=== PATIENT | male | born 1975 | race Caucasian/White ===

== ENCOUNTER 2024-10-22 05:22 | Emergency (ER) | payer SELFPAY ==
[2024-10-22 05:58] LABS: BASOPHILS ABSOLUTE AUTO 0.03 K/uL (0.00-0.10); BASOPHILS PERCENT AUTO 0.5 % (0.1-1.3); EOSINOPHILS ABSOLUTE AUTO 0.03 K/uL (0.00-0.40); EOSINOPHILS PERCENT AUTO 0.5 % (0.0-5.4); HEMATOCRIT 39.2 % (38.4-49.7); IMMATURE GRAN PERCENT AUTO 0.3 % (0.0-0.7); LYMPHOCYTES ABSOLUTE AUTO 0.83 K/uL (0.8-3.3); LYMPHOCYTES PERCENT AUTO 14.2 % (11.4-47.7); MEAN CORPUSCULAR HEMOGLOBIN 33.9 pg (31.6-35.5); MEAN CORPUSCULAR HGB CONC 33.2 g/dL (31.6-35.5); MEAN CORPUSCULAR VOLUME 102.3 fL (81.4-99.0); MONOCYTES PERCENT AUTO 15.4 % (3.3-12.6); NEUTROPHILS ABSOLUTE AUTO 4.04 K/uL (1.0-7.6); NEUTROPHILS PERCENT AUTO 69.1 % (40.0-78.1); PLATELET COUNT,PLT 108 K/uL (130-375); RED BLOOD CELL COUNT 3.83 M/uL (4.14-5.76); WHITE BLOOD CELL COUNT,WBC 5.9 K/uL (3.2-11.0)
[2024-10-22] MEDS: Sodium Chloride 0.9% 1,000 ML IV SCH (06:04)
[2024-10-22 06:13] LABS: IMMATURE GRAN ABSOLUTE AUTO 0.02 K/uL (0.00-0.23)
[2024-10-22 06:21] LABS: A/G RATIO 0.9 (1.2-2.2); ALANINE AMINOTRANSFERASE,ALT 26 U/L (12-78); ALBUMIN 2.9 g/dL (3.4-5.0); ALKALINE PHOSPHATASE 113 U/L (46-116); ASPARTATE AMNIOTRANSFERASE,AST 21 U/L (15-37); BLOOD UREA NITROGEN,BUN 5 mg/dL (7-18); C-REACTIVE PROTEIN 8.64 mg/dL (<0.50); CALCIUM 8.4 mg/dL (8.5-10.1); CARBON DIOXIDE,CO2 26 mmol/L (21-32); CHLORIDE,CL 104 mmol/L (100-108); CREATININE 0.9 mg/dL (0.8-1.3); EST CRCL DRUG DOSING (CG) 109.23 mL/min; ESTIMATED GFR 107 mL/min (>60); GLUCOSE RANDOM 116 mg/dL (74-106); POTASSIUM,K 3.8 mmol/L (3.6-5.2); PROTEIN TOTAL,TP 6.3 g/dL (6.4-8.2); SODIUM,NA 138 mmol/L (140-148)
[2024-10-22 06:23] LABS: ANION GAP 11.8 mmol/L (5.0-14.0)
[2024-10-22] MEDS: Sodium Chloride 0.9% 100 ML IV SCH (07:00)
[2024-10-22] MEDS: Iopamidol 612 MG/ML 100 ML Bottle IV SCH (07:00)
[2024-10-22] MEDS: Sodium Chloride 0.9% 10 ML Syringe FLUSH PRN (07:00)
[2024-10-22 07:06] LABS: APPEARANCE,URINE TURBID (CLEAR); BILIRUBIN,URINE NEGATIVE (NEGATIVE); COLOR,URINE YELLOW (YELLOW); GLUCOSE,URINE NEGATIVE (NEGATIVE); KETONES,URINE 15 mg/dL (NEGATIVE); LEUKOCYTE ESTERASE,URINE MODERATE (NEGATIVE); NITRITE,URINE POSITIVE (NEGATIVE); OCCULT BLOOD,URINE LARGE (NEGATIVE); PROTEIN,URINE 30 mg/dL (NEGATIVE)
[2024-10-22 07:11] LABS: BACTERIA,URINE MANY; EPITHELIAL CELLS,URINE NOT SEEN; MUCUS,URINE MODERATE; RBC,URINE 30-40 (0-5); WBC,URINE 40-50 (0-5)
[2024-10-22 07:12] LABS: AMORPHOUS SEDIMENT,URINE NOT SEEN
[2024-10-22] MEDS: Acetaminophen 325 MG Tab PO ONE (09:02)
[2024-10-22] MEDS: cefTRIAXone 500 MG, Lidocaine 1% 1 ML IM ONE (09:03)
== END 2024-10-22 09:19 ==
LOC: JP.ED 05:22
DX: N45.1 Epididymitis (principal)
CPT/HCPCS: 36415; 74177; 76870; 80053; 81001; 85025; 86140; 93976; 96360; 96372; 99285; A9270; J0696; J2003; J7030; Q9967